=== PATIENT | male | born 1955 | race Caucasian/White ===

== ENCOUNTER 2016-10-11 07:36 | Emergency (ER) | payer OTHER ==
[~2016-10-11] VITALS: Ht 162.6 cm; Wt 81.0 kg
[~2016-10-11 07:36] MED LIST: APR50 PO; CIPR500T4 PO; DOCU-144 PO; HYDR-3498 PO; HYDR-3672 PO; IBUP-1542 PO; LEVE500S9 PO; METF500T4 PO; METR500T PO; RANI150T5 PO; TRAM-40 PO; TRAM50TA2 PO
[2016-10-11 07:52] VITALS: Ht 162.6 cm; Wt 81.0 kg
--- NOTE | 2016-10-11 08:19 | ERD ---
ER Documentation Chief Complaint Date/Time DATE: 10/11/16 TIME: 08:17 Chief Complaint RT ANKLE PAIN X2 WEEKS AND GETTING WORSE DAILY HPI Patient is a 60-year-old male with a past medical history of diabetes who presents to the ED with right dorsal foot pain 2 weeks. He states that he hit his foot against the sidewalk 2 weeks ago and has had pain to the top of his foot. He also complains of right great toe pain. He states that he has pain when he walks. He is able to ambulate but with pain. He denies numbness or tingling. He denies radiation of pain up his leg. Denies pain above his ankle joint. Denies fevers or chills. Denies chest pain, cough, shortness of breath or difficulty breathing. Denies headache or dizziness. He denies falling. Patient also states that he would like a refill of his metformin. He states that his last dose will be tonight. He denies any polyuria, polyphagia or polydipsia. Denies abdominal pain, nausea, vomiting or diarrhea. Denies headache or dizziness. Denies recent surgeries or recent travel. states his sugars are controlled at home. No other complaints. ROS All systems reviewed and are negative except as per history of present illness. Medications Home Meds Active Scripts Metformin* (Glucophage*) 500 Mg Tab, 500 MG PO BID, #60 TAB Prov:KG YANES PA-C 10/11/16 Acetaminophen* (Tylophen*) 500 Mg Capsule, 1 CAP PO Q6H Y for PAIN AND OR ELEVATED TEMP, #20 CAP Prov:KG YANES PA-C 10/11/16 Metformin* (Glucophage*) 500 Mg Tab, 500 MG PO BID, #60 TAB Prov:CARY CARDOZO MD 10/21/15 Tramadol Hcl* (Ultram*) 50 Mg Tablet, 50 MG PO Q6H Y for PAIN, #20 TAB Prov:CARY CARDOZO MD 10/21/15 Hydralazine Hcl* (Hydralazine Hcl*) 50 Mg Tablet, 50 MG PO QDAY, #30 TAB Prov:CARY CARDOZO MD 10/21/15 Ibuprofen* (Ibuprofen*) 600 Mg Tablet, 600 MG PO Q6, #30 TAB Prov:CARY CARDOZO MD 10/21/15 Hydrocodone Bit-Acetaminophen* ([place]*) 5-325 Mg Tab, 1 TAB PO Q6 Y for PAIN, # 12 TAB Prov:JESSICA TORRES DO 09/27/15 Ibuprofen* (Motrin*) 600 Mg Tab, 600 MG PO Q8, #20 TAB Prov:JESSICA TORRES DO 09/27/15 Ciprofloxacin Hcl* (Ciprofloxacin Hcl*) 500 Mg Tablet, 500 MG PO BID for 10 Days , TAB Prov:BRAYAN NUNEZ DO 08/06/15 Hydrocodone Bit-Acetaminophen* ([place]*) 5-325 Mg Tab, 1 TAB PO Q6 Y for PAIN, # 20 TAB Prov:BRAYAN NUNEZ DO 08/06/15 Docusate Sodium* (Colace*) 100 Mg Capsule, 100 MG PO BID, #60 CAP Prov:TONY HARE MD 07/06/15 Metronidazole* (Flagyl*) 500 Mg Tablet, 500 MG PO Q8, #21 TAB Prov:TONY HARE MD 07/06/15 Ciprofloxacin Hcl* (Ciprofloxacin Hcl*) 500 Mg Tablet, 500 MG PO BID, #14 TAB Prov:TONY HARE MD 07/06/15 Reported Medications Ranitidine Hcl* (Ranitidine Hcl*) 150 Mg Tablet, 150 MG PO BID, #30 TAB 08/06/15 Hydralazine Hcl* (Hydralazine Hcl*) 50 Mg Tab, 50 MG PO DAILY, #120 TAB 08/06/15 Levetiracetam* (Keppra*) 500 Mg/5 Ml Solution, 750 MG PO BID for SEIZURES, TAB 06/29/15 Metformin* (Glucophage*) 500 Mg Tab, 500 MG PO BID, #90 TAB 06/29/15 Tramadol HCl (Tramadol HCl) 50 Mg Tablet, 50 MG PO Q6H Y for PAIN, #120 TAB 06/29/15 Allergies Allergies: Coded Allergies: No Known Allergy (Unverified , 06/29/15) PMhx/Soc History of Surgery: No Anesthesia Reaction: No Hx Neurological Disorder: Yes (Petit mal seizures 2 month ago - takes Keppra) Hx Respiratory Disorders: No (Pneumothorax 20 yr ago) Hx Cardiac Disorders: No Hx Psychiatric Problems: No Hx Miscellaneous Medical Probl: Yes (HTN, gallstgone pancreatitis, htn) Hx Alcohol Use: No Hx Substance Use: No Hx Tobacco Use: No FmHx Family History: No coronary disease, No diabetes, No other Physical Exam Vitals Vital Signs Date Time Temp Pulse Resp B/P Pulse Ox O2 Delivery O2 Flow Rate FiO2 10/11/16 10:10 98.6 72 16 132/72 95 Room Air 10/11/16 07:52 98.6 65 16 136/75 95 Physical Exam GENERAL: Well-developed, well-nourished male. Appears in no acute distress. LUNG: Clear to auscultation bilaterally. No rhonchi, wheezing, rales or coarse breath sounds. HEART: Regular rate and rhythm. No murmurs, rubs or gallops. Extremities: Equal pulses bilaterally. No peripheral clubbing, cyanosis. No unilateral leg swelling. tenderness to dorsum or right foot. No open wounds or lacerations. No step-offs or deformities. Minimal swelling. No erythema or streaking. Sensation intact bilaterally. No pain above ankle joint. Negative Homans sign NEUROLOGIC: Alert and oriented. Moving all four extremities. 5/5 strength in all extremities. Normal speech. unSteady gait. SKIN: Normal color. Warm and dry. No rashes or lesions. Capillary refill < 2 seconds Procedures/MDM ER COURSE: I kept the patient and/or family informed of laboratory and diagnostic imaging results throughout the emergency room course. IMAGING STUDIES [place] [address] Radiology Main Line: [phone] DIAGNOSTIC IMAGING REPORT Patient: LADI ABARCA : 1955 Age: 60 Sex: M MR #: [id number] DOS: 10/11/16 0813 Ordering MD: KG YANES PA-C Location: [facility] Room/Bed: PROCEDURE: XR Right Foot CLINICAL INDICATION: Pain TECHNIQUE: AP, oblique, and lateral radiographs were submitted. COMPARISON: None FINDINGS: Osseous structures: There is a linear lucency with surrounding sclerosis is seen within the shaft of the distal phalanx of the right great toe that may represent a healing nondisplaced fracture. The remaining osseous elements appear intact. There is spurring off the calcaneus at the insertion of the Achilles tendon and plantar aponeurosis. There is a spur extending ventrally off the distal talus. Joint spaces: are well maintained, with no significant spurring, erosion or joint effusion evident. Soft tissues: Mild vascular calcification is evident. IMPRESSION: 1. Linear lucency with surrounding sclerosis seen to the shaft of the distal phalanx of the right great toe suspicious for a nondisplaced healing fracture. 2. Calcaneal and talar spurring. 3. Mild vascular calcification. Physician Lynnette Date Time Electronically viewed and signed by Physician Lynnette on 10/11/2016 09:02 RH/ CC: KG YANES PA-C [place] [address] Radiology Main Line: [phone] DIAGNOSTIC IMAGING REPORT Patient: LADI ABARCA : 1955 Age: 60 Sex: M MR #: [id number] DOS: 10/11/16 0000 Ordering MD: KG YANES PA-C Location: [facility] Room/Bed: PROCEDURE: XR Right Ankle CLINICAL INDICATION: Pain TECHNIQUE: Standard 3 view radiographs were submitted. COMPARISON: None FINDINGS: Osseous structures: Well mineralized and intact with no fracture or destructive process identified. There is spurring off the calcaneus at the insertion of the plantar aponeurosis and Achilles tendon there is a spurring involving the anterior talus ventrally. Joint spaces: Well maintained with no significant erosions or spurring evident. Soft tissues: Appear unremarkable. IMPRESSION: 1. Calcaneal and talar spurring. 2. Otherwise, unremarkable right ankle series. Physician Lynnette Date Time Electronically viewed and signed by Physician Lynnette on 10/11/2016 09:03 RH/ CC: KG YANES PA-C MEDICAL DECISION MAKING: This is a 60-year-old male who presents with right foot pain 2 week after sustaining an injury where he hit his foot against the sidewalk. Vital signs were reviewed. Patient is afebrile. Patient is not hypoxic. Patient is not toxic or ill-appearing. Low suspicion for dislocation, fracture, septic joint, compartment syndrome, osteomyelitis, avascular necrosis, DVT, Achilles tendon rupture, cellulitis. At this time, unable to rule out any tendon and ligament injuries. XRAY as ready by radiologist shows Linear lucency with surrounding sclerosis seen to the shaft of the distal phalanx of the right great toe suspicious for a nondisplaced healing fracture. Low suspicion for DVT as patient does not have chest pain is not tachycardic and does not have any redness or swelling. Negative Homans sign. Patient does not shows signs of DKA , HONK. Low suspicion for hypoglycemia or hyperglycemia. DISCHARGE: At this time, patient is stable for discharge and outpatient management with no new complaints during the ER course. Patient was sent home with copy of imaging studies and Tylenol for pain and a refill of his Metformin... Patient will be discharged home with instructions to recheck for new or worsening symptoms such as fever, nausea, weakness, LOC and to follow up with primary care in the next 1 -2 days. Patient was advised to return to the ER for any new or worsening symptoms. Plan was discussed and patient and/or family understands and agrees. Home instructions were given. Departure Diagnosis: Primary Impression: Foot pain Laterality: right Qualified Code: M79.671 - Right foot pain Additional Impression: Encounter for medication refill Condition: Stable KG YANES PA-C Oct 11, 2016 08:19
--- NOTE | 2016-10-11 09:03 | RADRPT ---
PROCEDURE: XR Right Foot CLINICAL INDICATION: Pain TECHNIQUE: AP, oblique, and lateral radiographs were submitted. COMPARISON: None FINDINGS: Osseous structures: There is a linear lucency with surrounding sclerosis is seen within the shaft of the distal phalanx of the right great toe that may represent a healing nondisplaced fracture. The remaining osseous elements appear intact. There is spurring off the calcaneus at the insertion of t he Achilles tendon and plantar aponeurosis. There is a spur extending ventrally off the distal talu s. Joint spaces: are well maintained, with no significant spurring, erosion or joint effusion evident. Soft tissues: Mild vascular calcification is evident. IMPRESSION: 1. Linear lucency with surrounding sclerosis seen to the shaft of the distal phalanx of the right g reat toe suspicious for a nondisplaced healing fracture. 2. Calcaneal and talar spurring. 3. Mild vascular calcification. Physician Lynnette Date Time Electronically viewed and signed by Physician Lynnette on 10/11/2016 09:02 /
--- NOTE | 2016-10-11 09:04 | RADRPT ---
PROCEDURE: XR Right Ankle CLINICAL INDICATION: Pain TECHNIQUE: Standard 3 view radiographs were submitted. COMPARISON: None FINDINGS: Osseous structures: Well mineralized and intact with no fracture or destructive process identified. There is spurring off the calcaneus at the insertion of the plantar aponeurosis and Achilles tendon there is a spurring involving the anterior talus ventrally. Joint spaces: Well maintained with no significant erosions or spurring evident. Soft tissues: Appear unremarkable. IMPRESSION: 1. Calcaneal and talar spurring. 2. Otherwise, unremarkable right ankle series. Physician Lynnette Date Time Electronically viewed and signed by Physician Lynnette on 10/11/2016 09:03 /
[2016-10-11] MEDS ORDERED: ACET500C5 PO (09:15)
[2016-10-11] MEDS ORDERED: METF500T4 PO (10:02)
[2016-10-11 10:10] VITALS: BP 132/72; PULSE 72; RESP 16; TEMP 98.6
== END 2016-10-11 10:17 | disposition home or self-care (01) ==
LOC: FTE 07:36
DX: S99.921A Unspecified injury of right foot, initial encounter (principal); E11.9 Type 2 diabetes mellitus without complications; I10 Essential (primary) hypertension; W22.8XXA Striking against or struck by other objects, initial encounter; Z76.0 Encounter for issue of repeat prescription; Z79.84 Long term (current) use of oral hypoglycemic drugs
CPT/HCPCS: 73610; 73630; Z7502

== ENCOUNTER 2017-05-01 12:24 | Emergency (ER) | payer OTHER ==
[~2017-05-01] VITALS: Ht 165.1 cm; Wt 78.5 kg
[~2017-05-01 12:24] MED LIST changes: +ACET500C5 PO; -APR50 PO; +LEVE500S8 PO; -LEVE500S9 PO
[2017-05-01 12:59] VITALS: Ht 165.1 cm; Wt 78.5 kg
[2017-05-01] MEDS ORDERED: morphine 4 MG/ML VIAL IV STA (14:08)
[2017-05-01] MEDS ORDERED: ONDANSETRON 4 MG INJ IV STA (14:08)
[2017-05-01 14:41] LABS: BASOPHILS % 0.4 % (0.0-2.0); EOSINOPHILS % 0.2 % (0.0-7.0); HEMATOCRIT 45.2 % (42.0-52.0); LYMPHOCYTES # 0.9 10^3/ul (0.8-2.9); LYMPHOCYTES % 16.5 % (15.0-51.0); MEAN CORPUSCULAR HEMOGLOBIN 23.9 pg (29.0-33.0); MEAN CORPUSCULAR VOLUME 77.3 fl (82.0-101.0); MEAN PLATELET VOLUME 10.5 fl (7.4-10.4); MONOCYTE # 0.4 10^3/ul (0.3-0.9); MONOCYTES % 6.9 % (0.0-11.0); NEUTROPHIL # 4.1 10^3/ul (1.6-7.5); NEUTROPHILS % 75.6 % (39.0-77.0); PLATELET COUNT 153 10^3/UL (140-415); RED BLOOD COUNT 5.85 10^6/ul (4.70-6.10); RED CELL DISTRIBUTION WIDTH 14.1 % (11.5-14.5); WHITE BLOOD COUNT 5.4 10^3/ul (4.8-10.8)
[2017-05-01 14:54] LABS: ADD UMIC YES; UR ASCORBIC ACID NEGATIVE (NEGATIVE); UR BILIRUBIN (Dip) NEGATIVE (NEGATIVE); UR BLOOD (Dip) NEGATIVE (NEGATIVE); UR CLARITY CLEAR (CLEAR); UR COLOR AMBER (YELLOW); UR GLUCOSE (Dip) NEGATIVE (NEGATIVE); UR KETONES (Dip) NEGATIVE (NEGATIVE); UR LEUKOCYTE ESTERASE (Dip) NEGATIVE Leu/ul (NEGATIVE); UR MUCUS MANY /HPF (NONE SEEN); UR NITRITE (Dip) NEGATIVE (NEGATIVE); UR RBC 3 /HPF (0-5); UR SPECIFIC GRAVITY (Dip) 1.034 (1.003-1.030); UR TOTAL PROTEIN (Dip) 1+ mg/dl (NEGATIVE); UR UROBILINOGEN (Dip) 1+ mg/dL (NEGATIVE)
[2017-05-01 14:57] LABS: UR SQUAMOUS EPITHELIAL CELL FEW /HPF (FEW)
[2017-05-01 14:58] LABS: ALANINE AMINOTRANSFERASE 28 IU/L (13-69); ALBUMIN 4.8 g/dl (3.3-4.9); ALBUMIN/GLOBULIN RATIO 1.45; ALKALINE PHOSPHATASE 98 IU/L (42-121); ANION GAP 18 (8-16); ASPARTATE AMINO TRANSFERASE 24 IU/L (15-46); BILIRUBIN,INDIRECT 0.9 mg/dl (0-1.1); BILIRUBIN,TOTAL 0.9 mg/dl (0.2-1.3); BLOOD UREA NITROGEN 16 mg/dl (7-20); CALCIUM 8.9 mg/dl (8.4-10.2); CARBON DIOXIDE 25 mmol/L (21-31); CHLORIDE 105 mmol/L (97-110); GLUCOSE 145 mg/dl (70-220); POTASSIUM 3.7 mmol/L (3.5-5.1); SODIUM 144 mmol/L (135-144); TOTAL PROTEIN 8.1 g/dl (6.1-8.1)
--- NOTE | 2017-05-01 15:01 | RADRPT ---
PROCEDURE: CT Abdomen and Pelvis without contrast. CLINICAL INDICATION: Abdominal Pain TECHNIQUE: Routine abdominopelvic CT was performed without intravenous contrast and reformatted in the axial, coronal, sagittal planes. Radiation dose: CTDIvol (mGy) = 14.4; total DLP(mGy-cm) = 768 One or more of the following radiation dose techniques were used: -Automated exposure control. -Adjust of the mA and/or kV according to patient size. -Use of iterative reconstruction technique. COMPARISON: CT, 08/06/2015. FINDINGS: Gallbladder is surgically absent. There is a common bile duct stent in place with mild intrahepatic biliary duct dilatation. Steatotic changes are evident within the liver. Pancreas, adrenal glands, and spleen are unremarkable. Low density lesions in the bilateral kidneys measuring up to 16 mm, likely a cyst. Punctate 2 mm non obstructive calculus within the left kidney. There is nonspecific mild ground-glass changes identified in the small bowel mesentery in associatio n with small mesenteric lymph nodes. Mild sigmoid colonic diverticulosis without diverticulitis. The appendix is normal. Mildly distended loops of small bowel without evidence of a transition point to suggest bowel obstruction. Prostate gland is enlarged measuring 4.2 cm in AP dimension. Trace aortic calcifications without aneurysm. Lung bases are clear. 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 However, it may be associated with vague symptoms, such as generalized abdominal pain. Mild intrahepatic bile duct dilatation with a common bile duct stent in place. Hepatic steatosis. Colonic diverticulosis, uncomplicated. Prostatomegaly. RPTAT: EE .Jerrod Frey MD, Date Time Electronically viewed and signed by .Jerrod Frey MD, MD on 05/01/2017 15:07 .C/
[2017-05-01] MEDS ORDERED: METF500T4 PO (15:04)
[2017-05-01] MEDS ORDERED: LISI10TA2 PO (15:04)
[2017-05-01] MEDS ORDERED: ATOR20TA38 PO (15:05)
[2017-05-01 15:10] LABS: TROPONIN-I < 0.012 ng/ml (0.00-0.12)
[2017-05-01] MEDS ORDERED: HYDR-902 PO (15:25)
[2017-05-01] MEDS ORDERED: ONDA4TAB14 PO (15:25)
--- NOTE | 2017-05-01 15:27 | ERD ---
ER Documentation Chief Complaint Chief Complaint ap, vomitting, diarrhea and fever x3 days HPI Patient is a 61-year-old male with hypertension, diabetes, and high cholesterol who presents with abdominal pain. The patient said that last night he had "a lot of abdominal pain". The patient feels better now. He has fevers as well as vomiting and diarrhea. The symptoms come and go. He has had no treatment as of yet. Upon review of old medical records this is the patient's seventh visit to the ER since 2014. He does not currently have a primary doctor. ROS All systems reviewed and are negative except as per history of present illness. Medications Home Meds Active Scripts Ondansetron (Ondansetron Odt) 4 Mg Tab.rapdis, 4 MG PO Q6H Y for NAUSEA AND/OR VOMITING, #10 TAB Prov:YAMIL CLARK MD 05/01/17 Hydrocodone/Acetaminophen ([place] 10-325 Tablet) 1 Each Tablet, 1 TAB PO Q6H Y for PAIN, #7 TAB Prov:YAMIL CLARK MD 05/01/17 Reported Medications Atorvastatin Calcium* (Atorvastatin Calcium*) 20 Mg Tablet, 20 MG PO QHS, #30 TAB 05/01/17 Metformin Hcl* (Metformin Hcl*) 500 Mg Tablet, 500 MG PO WITH BREAKFAST DINNE, # 60 TAB 05/01/17 Lisinopril* (Lisinopril*) 10 Mg Tablet, 10 MG PO DAILY, #30 TAB 05/01/17 Discontinued Reported Medications Ranitidine Hcl* (Ranitidine Hcl*) 150 Mg Tablet, 150 MG PO BID, #30 TAB 08/06/15 Hydralazine Hcl* (Hydralazine Hcl*) 50 Mg Tab, 50 MG PO DAILY, #120 TAB 08/06/15 Levetiracetam* (Keppra*) 500 Mg/5 Ml Solution, 750 MG PO BID for SEIZURES, TAB 06/29/15 Metformin* (Glucophage*) 500 Mg Tab, 500 MG PO BID, #90 TAB 06/29/15 Tramadol HCl (Tramadol HCl) 50 Mg Tablet, 50 MG PO Q6H Y for PAIN, #120 TAB 06/29/15 Discontinued Scripts Metformin* (Glucophage*) 500 Mg Tab, 500 MG PO BID, #60 TAB Prov:KG YANES PA-C 10/11/16 Acetaminophen* (Tylophen*) 500 Mg Capsule, 1 CAP PO Q6H Y for PAIN AND OR ELEVATED TEMP, #20 CAP Prov:KG YANES PA-C 10/11/16 Metformin* (Glucophage*) 500 Mg Tab, 500 MG PO BID, #60 TAB Prov:CARY CARDOZO MD 10/21/15 Tramadol Hcl* (Ultram*) 50 Mg Tablet, 50 MG PO Q6H Y for PAIN, #20 TAB Prov:CARY CARDOZO MD 10/21/15 Hydralazine Hcl* (Hydralazine Hcl*) 50 Mg Tablet, 50 MG PO QDAY, #30 TAB Prov:CARY CARDOZO MD 10/21/15 Ibuprofen* (Ibuprofen*) 600 Mg Tablet, 600 MG PO Q6, #30 TAB Prov:CARY CARDOZO MD 10/21/15 Hydrocodone Bit-Acetaminophen* ([place]*) 5-325 Mg Tab, 1 TAB PO Q6 Y for PAIN, # 12 TAB Prov:JESSICA TORRES DO 09/27/15 Ibuprofen* (Motrin*) 600 Mg Tab, 600 MG PO Q8, #20 TAB Prov:JESSICA TORRES DO 09/27/15 Ciprofloxacin Hcl* (Ciprofloxacin Hcl*) 500 Mg Tablet, 500 MG PO BID for 10 Days , TAB Prov:BRAYAN NUNEZ DO 08/06/15 Hydrocodone Bit-Acetaminophen* ([place]*) 5-325 Mg Tab, 1 TAB PO Q6 Y for PAIN, # 20 TAB Prov:BRAYAN NUNEZ DO 08/06/15 Docusate Sodium* (Colace*) 100 Mg Capsule, 100 MG PO BID, #60 CAP Prov:TONY HARE MD 07/06/15 Metronidazole* (Flagyl*) 500 Mg Tablet, 500 MG PO Q8, #21 TAB Prov:TONY HARE MD 07/06/15 Ciprofloxacin Hcl* (Ciprofloxacin Hcl*) 500 Mg Tablet, 500 MG PO BID, #14 TAB Prov:TONY HARE MD 07/06/15 Allergies Allergies: Coded Allergies: No Known Allergy (Unverified , 05/01/17) PMhx/Soc History of Surgery: No Anesthesia Reaction: No Hx Neurological Disorder: Yes (Petit mal seizures 2 month ago - takes Keppra) Hx Respiratory Disorders: No (Pneumothorax 20 yr ago) Hx Cardiac Disorders: No Hx Psychiatric Problems: No Hx Miscellaneous Medical Probl: Yes (HTN, gallstgone pancreatitis, htn) Hx Alcohol Use: No Hx Substance Use: No Hx Tobacco Use: No FmHx Family History: No diabetes Physical Exam Vitals Vital Signs Date Time Temp Pulse Resp B/P Pulse Ox O2 Delivery O2 Flow Rate FiO2 05/01/17 12:59 98.9 75 20 138/79 97 Physical Exam Const: No acute distress Head: Atraumatic Eyes: Normal Conjunctiva ENT: Normal External Ears, Nose and Mouth. Neck: Full range of motion..~ No meningismus. Resp: Clear to auscultation bilaterally Cardio: Regular rate and rhythm, no murmurs Abd: Soft, diffuse tenderness to palpation without rebound or guarding Skin: No petechiae or rashes Back: No midline or flank tenderness Ext: No cyanosis, or edema Neur: Awake and alert Psych: Normal Mood and Affect Result Diagram: 05/01/17 1400 05/01/17 1400 Results 24 hrs Laboratory Tests Test 05/01/17 14:00 05/01/17 14:30 White Blood Count 5.410^3/ul Red Blood Count 5.8510^6/ul Hemoglobin 14.0g/dl Hematocrit 45.2% Mean Corpuscular Volume 77.3fl Mean Corpuscular Hemoglobin 23.9pg Mean Corpuscular Hemoglobin Concent 31.0g/dl Red Cell Distribution Width 14.1% Platelet Count 97146^3/UL Mean Platelet Volume 10.5fl Neutrophils % 75.6% Lymphocytes % 16.5% Monocytes % 6.9% Eosinophils % 0.2% Basophils % 0.4% Nucleated Red Blood Cells % 0.0/100WBC Neutrophils # 4.110^3/ul Lymphocytes # 0.910^3/ul Monocytes # 0.410^3/ul Eosinophils # 0.010^3/ul Basophils # 0.010^3/ul Nucleated Red Blood Cells # 0.010^3/ul Sodium Level 144mmol/L Potassium Level 3.7mmol/L Chloride Level 105mmol/L Carbon Dioxide Level 25mmol/L Anion Gap 18 Blood Urea Nitrogen 16mg/dl Creatinine 0.90mg/dl Glucose Level 145mg/dl Calcium Level 8.9mg/dl Total Bilirubin 0.9mg/dl Direct Bilirubin 0.00mg/dl Indirect Bilirubin 0.9mg/dl Aspartate Amino Transf (AST/SGOT) 24IU/L Alanine Aminotransferase (ALT/SGPT) 28IU/L Alkaline Phosphatase 98IU/L Troponin I < 0.012ng/ml Total Protein 8.1g/dl Albumin 4.8g/dl Globulin 3.30g/dl Albumin/Globulin Ratio 1.45 Lipase 81U/L Urine Color ERICH Urine Clarity CLEAR Urine pH 5.0 Urine Specific [place] 1.034 Urine Ketones NEGATIVEmg/dL Urine Nitrite NEGATIVEmg/dL Urine Bilirubin NEGATIVEmg/dL Urine Urobilinogen 1+mg/dL Urine Leukocyte Esterase NEGATIVELeu/ul Urine Microscopic RBC 3/HPF Urine Microscopic WBC 4/HPF Urine Squamous Epithelial Cells FEW/HPF Urine Mucus MANY/HPF Urine Hemoglobin NEGATIVEmg/dL Urine Glucose NEGATIVEmg/dL Urine Total Protein 1+mg/dl Current Medications Medications (Trade) Dose Ordered Sig/Conrad Route PRN Reason Start Time Stop Time Status Last Admin Dose Admin Morphine Sulfate (morphine) 4 mg ONCE STAT IV 05/01/17 14:08 05/01/17 14:09 DC 05/01/17 14:31 Ondansetron HCl (Zofran Inj) 4 mg ONCE STAT IV 05/01/17 14:08 05/01/17 14:09 DC 05/01/17 14:31 Procedures/MDM EKG read by me: Rate/Rhythm: Regular rate and rhythm at a rate of 61 Intervals: Normal Impression: No evidence of ischemia or arrhythmia CT shows possible mesenteric adenitis per radiology. Patient is a 61-year-old male with hypertension, diabetes, high cholesterol presents with abdominal pain. Full workup was done which was basically negative. CT scan shows possible mesenteric adenitis which could be the cause of his pain. I doubt acute coronary syndrome, cholecystitis, pancreatitis, appendicitis, or bowel obstruction. The patient will be discharged home with a prescription for [place] and Zofran. The patient went to follow-up with a primary doctor tomorrow for reevaluation. A list of the local clinics was given as he does not currently have a primary doctor. He was given a copy of his laboratory studies and CT scan report prior to discharge. Departure Diagnosis: Primary Impression: Vomiting Vomiting type: unspecified Vomiting Intractability: non-intractable Nausea presence: with nausea Qualified Code: R11.2 - Non-intractable vomiting with nausea, unspecified vomiting type Additional Impression: Abdominal pain Abdominal location: generalized Qualified Code: R10.84 - Generalized abdominal pain Condition: Fair Patient Instructions: Abdominal Pain, Vomiting (6Y-Adult) [facility] Usted se cao hecho un examen mdico de control que le indica que no est en frankie condicin que requiera tratamiento urgente en el Departamento de Emergencia. Un estudio ms profundo y el tratamiento de colon condicin pueden esperar sin ningn riesgo hasta que usted sea atendida/o en el consultorio de colon mdico o frankie cl theresa. Es responsabilidad suya arreglar frankie funmilayo para el seguimiento del virgilio. MANEJO DE CONDICIONES NO URGENTES EN EL FUTURO 1) Si usted tiene un mdico de atencin primaria: Usted debera llamar a colon mdico de atencin primaria antes de venir al departamento de emergencia. Despus de las horas de consultorio, colon doctor o colon asociado/a est disponible por telfono. El mdico o enfermero de laci en el servicio telefnico puede asesorarle por carri medio para atender el problema, o virgilio contrario se puede programar frankie funmilayo. 2) Si usted no tiene un mdico de atencin primaria: Llame al mdico o clnica de referencia que aparece abajo evin las horas de consultorio para hacer frankie funmilayo para que le vean. CLINICAS: [facility] [phone] [address] [facility] [phone] [address] [facility] [phone] [address] [facility] [phone] [address] [facility] 504 [phone] [address] [facility] [phone] [address] Additional Instructions: Llame al doctor MAANA y teo frankie FUNMILAYO PARA DENTRO DE 1-2 TAM.Dgale a la secretaria que nosotros le instruimos hacer esta funmilayo.Avise o llame si colon condicin se empeora antes de la funmilayo. Regresa aqui si peor o no mejor. YAMIL CLARK MD May 01, 2017 15:27
[2017-05-01 15:53] VITALS: BP 132/84; PULSE 72; RESP 14
== END 2017-05-01 16:26 | disposition home or self-care (01) ==
LOC: E/R 12:24
DX: R11.2 Nausea with vomiting, unspecified (principal); R10.84 Generalized abdominal pain; I10 Essential (primary) hypertension; E11.9 Type 2 diabetes mellitus without complications; Z79.84 Long term (current) use of oral hypoglycemic drugs
CPT/HCPCS: 36415; 74176; 80053; 81001; 83690; 84484; 85025; 93005; 96374; 96375; J2270; J2405; Z7502

== ENCOUNTER 2017-08-01 11:04 | Emergency (ER) | END 2017-08-01 15:10 | disposition left against medical advice (07) ==

== ENCOUNTER 2018-10-11 23:39 | Emergency (ER) | payer OTHER ==
[~2018-10-11] VITALS: Ht 154.9 cm; Wt 80.6 kg
[~2018-10-11 23:39] MED LIST changes: -ACET500C5 PO; +ATOR20TA38 PO; -CIPR500T4 PO; -DOCU-144 PO; -HYDR-3498 PO; -HYDR-3672 PO; +HYDR-3980 PO; -IBUP-1542 PO; -LEVE500S8 PO; +LISI10TA2 PO; +METF500T24 PO; -METF500T4 PO; -METR500T PO; +ONDA4TAB14 PO; -RANI150T5 PO; -TRAM-40 PO; -TRAM50TA2 PO
[2018-10-11 23:51] VITALS: Ht 154.9 cm; Wt 80.6 kg
[2018-10-12] MEDS ORDERED: ONDANSETRON 4 MG INJ IV STA (03:41)
[2018-10-12] MEDS ORDERED: SOD CHLORIDE 0.9% 1,000 ML IV STA (03:41)
[2018-10-12] MEDS ORDERED: ONDA4TAB14 PO (05:45)
[2018-10-12 06:20] VITALS: BP 114/70; PULSE 74; RESP 20
--- NOTE | 2018-10-12 23:18 | ERD ---
ER Documentation Chief Complaint Chief Complaint vomiting,diarrhea since yesterday,denies Abd pain or dizziness HPI 62 year old english speaking M with hx of diabetes mellitus who presents to the ED with nausea, vomiting and diarrhea x 2 days. Pt reports sx started after eating cooked chicken at home. Reports over 20 episodes of nonbilious, nonbloody emesis and over 10 episodes of loose and watery stools. No melena or hematochezi a. No associated abdominal pain. No fevers, chills, urinary sx, chest pain or shortness of breath. No recent travel. No recent abx use. ROS All systems reviewed and are negative except as per history of present illness. Medications Home Meds Active Scripts Ondansetron (Ondansetron Odt) 4 Mg Tab.rapdis, 4 MG PO Q6H PRN for NAUSEA AND/OR VOMITING, #10 TAB Prov:IVETTE FERNANDO PA-C 10/12/18 Ondansetron (Ondansetron Odt) 4 Mg Tab.rapdis, 4 MG PO Q6H PRN for NAUSEA AND/OR VOMITING, #10 TAB Prov:YAMIL CLARK MD 05/01/17 Hydrocodone/Acetaminophen ([place] 10-325 Tablet) 1 Each Tablet, 1 TAB PO Q6H PRN for PAIN, #7 TAB Prov:YAMIL CLARK MD 05/01/17 Reported Medications Atorvastatin Calcium* (Atorvastatin Calcium*) 20 Mg Tablet, 20 MG PO QHS, #30 TAB 05/01/17 Metformin Hcl* (Metformin Hcl*) 500 Mg Tablet, 500 MG PO WITH BREAKFAST DINNE, #60 TAB 05/01/17 Lisinopril* (Lisinopril*) 10 Mg Tablet, 10 MG PO DAILY, #30 TAB 05/01/17 Allergies Allergies: Coded Allergies: No Known Allergy (Unverified , 05/01/17) PMhx/Soc History of Surgery: No Anesthesia Reaction: No Hx Neurological Disorder: Yes (Petit mal seizures 2 month ago - takes Keppra) Hx Respiratory Disorders: No (Pneumothorax 20 yr ago) Hx Cardiac Disorders: Yes (HTN) Hx Psychiatric Problems: No Hx Miscellaneous Medical Probl: Yes (DM) Hx Alcohol Use: No Hx Substance Use: No Hx Tobacco Use: No Physical Exam Vitals Vital Signs Date Temp Pulse Resp B/P (MAP) Pulse Ox O2 O2 Flow FiO2 Time Delivery Rate 10/12/18 98.4 74 20 114/70 96 Room Air 06:20 (85) 10/11/18 98.4 98 18 144/87 96 23:51 (106) Physical Exam Const: No acute distress Head: Atraumatic Eyes: Normal Conjunctiva ENT: Normal External Ears, Nose and Mouth. Moist mucous membranes Neck: Full range of motion. No meningismus. Resp: Clear to auscultation bilaterally Cardio: Regular rate and rhythm, no murmurs Abd: Soft, non tender, non distended. Normal bowel sounds Skin: No petechiae or rashes Back: No midline or flank tenderness Ext: No cyanosis, or edema Neur: Awake and alert Psych: Normal Mood and Affect Result Diagram: 10/12/1840910/12/18409 Results 24 hrs Laboratory Tests Test 10/12/18 04:10 White Blood Count 7.1 10^3/ul Red Blood Count 6.23 10^6/ul Hemoglobin 15.0 g/dl Hematocrit 48.7 % Mean Corpuscular Volume 78.2 fl Mean Corpuscular Hemoglobin 24.1 pg Mean Corpuscular Hemoglobin Concent 30.8 g/dl Red Cell Distribution Width 14.5 % Platelet Count 186 10^3/UL Mean Platelet Volume 10.2 fl Immature Granulocytes % 0.300 % Neutrophils % 79.0 % Lymphocytes % 13.0 % Monocytes % 7.3 % Eosinophils % 0.1 % Basophils % 0.3 % Nucleated Red Blood Cells % 0.0 /100WBC Immature Granulocytes # 0.020 10^3/ul Neutrophils # 5.6 10^3/ul Lymphocytes # 0.9 10^3/ul Monocytes # 0.5 10^3/ul Eosinophils # 0.0 10^3/ul Basophils # 0.0 10^3/ul Nucleated Red Blood Cells # 0.0 10^3/ul Sodium Level 140 mmol/L Potassium Level 4.2 mmol/L Chloride Level 107 mmol/L Carbon Dioxide Level 23 mmol/L Anion Gap 10 Blood Urea Nitrogen 16 mg/dl Creatinine 0.80 mg/dl Est Glomerular Filtrat Rate mL/min > 60 mL/min Glucose Level 128 mg/dl Calcium Level 8.8 mg/dl Total Bilirubin 0.8 mg/dl Direct Bilirubin 0.00 mg/dl Indirect Bilirubin 0.8 mg/dl Aspartate Amino Transf (AST/SGOT) 56 IU/L Alanine Aminotransferase (ALT/SGPT) 58 IU/L Alkaline Phosphatase 111 IU/L Total Protein 8.3 g/dl Albumin 4.4 g/dl Globulin 3.90 g/dl Albumin/Globulin Ratio 1.12 Lipase 72 U/L Current Medications Medications Dose Sig/Conrad Start Time Status Last (Trade) Ordered Route PRN Stop Time Admin Dose Reason Admin Sodium 1,000 ml @ Q1H STAT 10/12/18 DC 10/12/18 Chloride 1,000 mls/hr IV 03:41 04:22 10/12/18 04:40 Ondansetron 4 mg ONCE STAT 10/12/18 DC 10/12/18 HCl (Zofran IV 03:41 04:22 Inj) 10/12/18 03:44 Procedures/MDM LABS & DIAGNOSTIC IMAGING: CBC: no e/o of systemic infection or severe anemia CMP: no e/o severe acidosis, alkalosis, renal failure, diabetic ketoacidosis, liver disease Lipase: no e/o of pancreatitis Otherwise within normal limits, unremarkable or as documented above. ED COURSE: The patient was given IVFs, Zofran The medication was well tolerated and the patient had market improvement in symptoms. The patient remained stable throughout ED course. MEDICAL DECISION MAKIN62 year old M presents with vomiting and diarrhea status eating chicken. He is afebrile and vital signs are normal. Abdominal exam is benign. Workup as above with any e/o of significant infection or dehydration. I have low suspicion for appendicitis, obstruction, diverticulitis or any other emergent pathology. Pt felt much better status post IVFs and Zofran. Sx are likely viral in etiology. Will dc home with rx Zofran. Recommend follow up with PCP in 2 days, return here for any new or worsening sx. PRESCRIPTIONS: Zofran SPECIALIST FOLLOW UP RECOMMENDED: None Patient has been advised to follow up with primary care in 1-2 days. Patient's blood pressure was elevated (>120/80) but appears stable without evidence of hypertension emergency or urgency. The patient was counseled about the risks of hypertension and urged to pursue outpatient monitoring and therapy within a week with their primary care physician Departure Diagnosis: Primary Impression: Vomiting and diarrhea Condition: Stable Patient Instructions: Self-Care for Vomiting and Diarrhea Referrals: COMMUNITY CLINICS YOU HAVE RECEIVED A MEDICAL SCREENING EXAM AND THE RESULTS INDICATE THAT YOU DO NOT HAVE A CONDITION THAT REQUIRES URGENT TREATMENT IN THE EMERGENCY DEPARTMENT. FURTHER EVALUATION AND TREATMENT OF YOUR CONDITION CAN WAIT UNTIL YOU ARE SEEN IN YOUR DOCTORS OFFICE WITHIN THE NEXT 1-2 DAYS. IT IS YOUR RESPONSIBILITY TO MAKE AN APPOINTMENT FOR FOLOW-UP CARE. IF YOU HAVE A PRIMARY DOCTOR --you should call your primary doctor and schedule an appointment IF YOU DO NOT HAVE A PRIMARY DOCTOR YOU CAN CALL OUR PHYSICIAN REFERRAL HOTLINE AT IF YOU CAN NOT AFFORD TO SEE A PHYSICIAN YOU CAN CHOSE FROM THE FOLLOWING [facility] [address] [facility]. [facility] [address] [facility] [address] [facility] [facility] [address] [facility] [facility] [address] [facility]. [facility] [address] [facility]. [facility] YOU HAVE RECEIVED A MEDICAL SCREENING EXAM AND THE RESULTS INDICATE THAT YOU DO NOT HAVE A CONDITION THAT REQUIRES URGENT TREATMENT IN THE EMERGENCY DEPARTMENT. FURTHER EVALUATION AND TREATMENT OF YOUR CONDITION CAN WAIT UNTIL YOU ARE SEEN IN YOUR DOCTORS OFFICE WITHIN THE NEXT 1-2 DAYS. IT IS YOUR RESPONSIBILITY TO MAKE AN APPOINTMENT FOR FOLOW-UP CARE. IF YOU HAVE A PRIMARY DOCTOR --you should call your primary doctor and schedule and appointment IF YOU DO NOT HAVE A PRIMARY DOCTOR YOU CAN CALL OUR PHYSICIAN REFERRAL HOTLINE AT . IF YOU CAN NOT AFFORD TO SEE A PHYSICIAN YOU CAN CHOSE FROM THE FOLLOWING [facility] INSTITUTIONS: [facility] [address] [place] [address] [facility] [address] [place] [address] [facility] + [facility] [address] [place] [address] [facility] Additional Instructions: Your symptoms are likely viral. Drink a lot of water the next few days. Eat t hings like bread, toast, bananas, applesauce, potatoes and broad vegetables for the next few days. Increase your diet as tolerated. Follow-up with your regular doctor in 2 days. Return for any new or worsening symptoms. IVETTE FERNANDO PA-C Oct 12, 2018 23:18
== END 2018-10-12 06:30 | disposition home or self-care (01) ==
LOC: FTE 23:39
DX: R19.7 Diarrhea, unspecified (principal); R11.10 Vomiting, unspecified; I10 Essential (primary) hypertension; E11.9 Type 2 diabetes mellitus without complications; Z79.84 Long term (current) use of oral hypoglycemic drugs
CPT/HCPCS: 36415; 80053; 83690; 85025; 87400; 96374; J2405; J7030; Z7502